=== PATIENT | female | born 1980 | race African-American/Black ===

== ENCOUNTER 2018-07-05 09:49 | Day surgery (SDC) | payer OTHER, SELFPAY ==
[2018-07-03 12:29] VITALS: BMI 28.5
[2018-07-05] VITALS (8 sets, daily range): BP systolic 89–122; BP diastolic 65–82; PULSE 51–62; RESP 9–17; TEMP 36.4–36.6; O2SAT 98–100; BMI 28.4
--- NOTE | 2018-07-05 | PATH_ITS ---
[facility] Accession Number: [id number] . 01 Material submitted: . PART A: cervix - CERVICAL BIOPSY AT 12 O'CLOCK PART B: body - TRANSFORMATION ZONE PART C: body - DEEP TISSUE PART D: endocervix - ENDOCERVICAL CURETTINGS . 02 Diagnosis: A. Cervix at 12 o'clock, LEEP Biopsy: Very focal, mild involvement by low-grade squamous intraepithelial lesion/ WALTER-1. The tissue margins appear negative for dysplasia. . B. Transformation Zone, LEEP Biopsy: Focal low-grade squamous intraepithelial lesion/WALTER-1. The apparant ectocervical margin is negative for dysplasia. The apparent endocervical margin is negative for dysplasia. Changes consistent with previous instrumentation are present. . C. Deep Tissue, LEEP Biopsy: Focal high-grade squamous intraepithelial lesion/WALTER-2 and adjacent and separate regions of low-grade squamous intraepithelial lesion/ WALTER-1. The apparent ectocervcial margin is negative for dysplasia. The apparent endocervical margin is negative for dysplasia. Changes consistent with previous instrumentation are present. . D. Endocervical Curettings: Portions of lower uterine segment / endometrial tissue; negative for glandular hyperplasia, cytologic atypia, and malignancy. Endocervical tissue fragments present, some with features of a benign polyp; negative for glandular dysplasia and malignancy. /07/08/2018 . 02 Comment: This patient's previous Pap smear report ([id number]; 10/24/2017) is reviewed and the atypical squamous cells present on the previous Pap smear could derive from the current biopsy tissue. These findings do correlate. . 02 Electronically signed: . Nicole Francis MD, Pathologist NPI- [id number] . 01 Gross description: . (A) Received in formalin, labeled cervical BX at 12 o'clock, is an unoriented piece of cervical tissue (1.8 x 1.1 x 0.4 cm) with palafox-pink smooth shiny mucosa. No nodules, masses or lesions are identified. The tissue cannot be oriented and the endocervical and ectocervical margins cannot be determined; therefore, the resection margin is inked blue. Serially sectioned and entirely submitted in cassette A1. (B) Received in formalin, labeled transformation zone, are multiple unoriented pieces of cervical tissue (2.5 x 1.5 x 0.4 cm in aggregate) with palafox-white smooth shiny mucosa. No nodules, masses or lesions are identified. The possible endocervical margin is inked orange and the possible ectocervical and stromal margins are inked blue. Serially sectioned and entirely submitted in cassettes B1-B3. (C) Received in formalin, labeled deep tissue, is an unoriented cervical excision (diameter-1.2 x 0.6 cm, 0.3 cm in depth) with palafox-pink smooth shiny mucosa. No nodules, masses or lesions are identified. The possible endocervical margin is inked orange and the possible ectocervical and stromal margins are inked blue. Radially sectioned and entirely submitted in cassettes C1-C2. (D) Received in formalin, labeled endocervical curetting, is turbid mucoid material containing multiple fragments of bustamante tissue (2.7 x 2.5 x 0.1 cm in aggregate). Filtered and entirely submitted in cassette D1. ([id number]) /MRV . 02 Pathologist provided ICD-10: N87.1 . 02 CPT . 042960, 887655, 189940, 779373 Performed at: 01 [facility] [address], [place], [place] [id number] MD Agustin Salazar MD Phone: [phone] Performed at: 02 [facility] [address] [place], [place] [id number] MD Corine Rivera MD Phone: [phone]
[2018-07-05] MEDS: LACTATED RINGERS 1,000 ML 42 ML IV (10:27)
--- NOTE | 2018-07-05 10:40 | PM.PREOP ---
Pre-operative Note Interval Note History & Physical reviewed/Exam performed by Physician: Yes Changes to H&P: No
--- NOTE | 2018-07-05 10:40 | PM.GYNHP.1 ---
History of Present Illness Reason for admission: other (WALTER 2 on ECC colpo directed biopsies) Narrative: Christy Magdaleno is a 38 year old female for LEEP procedure [facility] Medical History (Updated 07/05/18 @ 10:42 by Marilu Hewitt MD) Anxiety (Acute) Insomnia (Acute) Surgical History (Updated 07/03/18 @ 12:32 by Blaire Moore RN) Hx of colposcopy with cervical biopsy (Acute 12/25/17) Social History household members: none Smoking Status: Never smoker Social History household members: none Smoking Status: Never smoker Meds Home Medications Medication Instructions Recorded Confirmed Type acetaminophen [Tylenol] 975 mg PO QID PRN 07/05/18 07/05/18 History naproxen sodium [Aleve] 800 mg PO BID 07/05/18 07/05/18 History trazodone 50 mg PO BEDTIME PRN 07/05/18 07/05/18 History Allergies Allergy/AdvReac Type Severity Reaction Status Date / Time No Known Drug Allergies Allergy Verified 07/05/18 10:06 Review of Systems Review of Systems All systems reviewed & are unremarkable except as noted in HPI and below Exam Vital Signs (past 8 hours): - 07/05/18 10:17 Temperature 97.8 F Pulse Rate 58 L Respiratory Rate 16 Blood Pressure 122/82 Pulse Oximetry 98 Oxygen Delivery Method Room Air Narrative Exam Narrative: HEENT exam within normal limits. Lungs are clear to auscultation and percussion. Heart is regular rate and rhythm no S3-S4 or murmurs. Abdomen is soft, nontender with no palpable organomegaly. Normal external genitalia, vagina, cervix. Uterus is not enlarged, nontender. No adnexal masses or tenderness. Normal extremities. Assessment & Plan (1) WALTER II (cervical intraepithelial neoplasia II): Current visit: Yes Status: Acute Assessment & Plan narrative: Patient with WALTER 2 on ECC with WALTER 2 on colpo directed biopsies here for LEEP procedure and ECC. Time Spent With Patient Time with patient: less than 15 minutes
--- NOTE | 2018-07-05 11:14 | SUR.OPER ---
Lithotomy on padded OR bed, head on pillow, arms secured on padded arm boards at <90 degrees abduction. Legs secured in padded yellow fins stirrups.
[2018-07-05] MEDS: BUPIVACAINE 0.5% W/ EPI (PF) VIAL 30 ML INJ (11:23)
[2018-07-05] MEDS: POTASSIUM IODIDE/IODINE 473 ML SOLUTION TOP (11:28)
--- NOTE | 2018-07-05 11:35 | SUR.OPER ---
Dr. Hewitt applied Monsel topically on cervix on the end of procedure.
--- NOTE | 2018-07-05 11:40 | P.OP_ITS ---
Operative Date/Time/Diagnoses Date of procedure: 07/05/18 Time of procedure: 11:37 Pre-op diagnosis: WALTER 2 of the cervix and on ECC Post-op diagnosis: same Procedure & Clinicians Procedure: LEEP procedure with ECC Same procedure as scheduled: Yes Indications: WALTER 2 on colpo directed biopsies and on ECC Surgeon: Marilu Hewitt Click Yes if Unassisted: Yes Anesthesia Type: General Operative Notes Findings: Lugol nonstaining area at 12:00 p.m. of distance from the transformation zone normal exam under anesthesia Closure Type: not applicable Specimen(s): other (Biopsy at 12:00 p.m., transformation zone, a deeper biopsy of endocervical canal and ECC) Estimated Blood Loss (mL): 5 Blood products transfused: none Procedure in detail: Patient was brought to the operating room she underwent general. She was placed in low stirrups. A coated bivalve speculum was placed into the vagina. The cervix was injected with 0.5% Marcaine with epinephrine. A coated single-tooth tenaculum was placed on the anterior lip of the cervix. The cervix was stained with Lugol's. The loop set at 60 W of cutting was used to remove the nonstaining area at 12:00 p.m. as well as the entire squamocolumnar junction. A slightly deeper section was taken of the endocer vical canal. An ECC was performed. The tissue was cauterized external to the LEEP with ball cautery to extend the treatment zone. Monsel's was placed. The patient went to recovery room in good condition. Counts of instruments and sponges were correct. The tissue was sent for pathology. Complications: none Condition: stable Disposition: same day surgery Plan for aftercare: Treatment and follow-up based on biopsy results
--- NOTE | 2018-07-05 12:04 | SUR.PHASEI ---
Stable, A&O, denies pain/nausea, tolerating PO well. Asking appropriate questions.
== END 2018-07-05 12:29 | disposition home or self-care (01) ==
PROVIDERS: Visit Provider Specialist
PROC: 0UBC7ZZ Excision of Cervix, Via Natural or Artificial Opening (ICD-10-PCS; CPT 57522; principal; 2018-07-05 10:45)
DX: N87.1 Moderate cervical dysplasia (principal)
CPT/HCPCS: 57522; J1100; J1885; J2250; J2405; J2704; J3010

== ENCOUNTER → 2018-08-05 11:39 | Outpatient (CLI) | payer OTHER, SELFPAY ==
[2018-08-07 20:02] LABS: Testosterone Free 2.5 pg/mL (0.1-6.4); Testosterone Total 25 ng/dL (2-45)
== END ==
PROVIDERS: Visit Provider Specialist
DX: L68.0 Hirsutism (principal)
CPT/HCPCS: 36415; 84402; 84403